=== PATIENT | male | born 1995 | race Caucasian/White ===

== ENCOUNTER 2017-09-24 12:33 | Emergency (ER) | payer SELFPAY ==
[~2017-09-24] VITALS: Ht 172.7 cm; Wt 73.0 kg
[2017-09-24 14:05] VITALS: BP 122/80
[2017-09-24] MEDS ORDERED: DICYCLOMINE 10 MG/5 ML ORAL SYR PO STA (14:18)
[2017-09-24] MEDS ORDERED: VISCOUS LIDOCAINE 2% 15 ML UDC PO STA (14:18)
[2017-09-24] MEDS ORDERED: MAGNESIUM/ALUMINUM HYDROXIDE/SIMETHICONE 30ML UDC PO STA (14:18)
[2017-09-24] MEDS ORDERED: FAMOTIDINE 20MG TABLET PO ONE (14:30)
== END 2017-09-24 15:26 | disposition home or self-care (01) ==
LOC: ER 12:33
DX: F41.9 Anxiety disorder, unspecified (principal); F17.210 Nicotine dependence, cigarettes, uncomplicated; F15.10 Other stimulant abuse, uncomplicated
CPT/HCPCS: 99284